=== PATIENT | male | born 1945 | race Caucasian/White ===

== ENCOUNTER → 2017-12-01 11:28 | Outpatient (CLI) | payer MEDICARE, SELFPAY ==
[2017-12-01 14:26] LABS: Absolute Lymphocyte Count 1.81 X10^3/ul (0.83-4.51); Basophil# 0.01 X10^3/uL; Basophil% 0.2 % (0-1); Eosinophil# 0.07 X10^3/uL; Eosinophils% 1.3 % (0-5); Hematocrit 42.6 % (40-54); Hemoglobin 14.1 g/dl (13.0-16.5); Lymphocyte # 1.81 X10^3/ul (4.0); Mean Corp Hgb Conc 33.1 g/gl (32-36); Mean Corpuscular Hgb 30.8 pg (27.0-32.0); Monocyte# 0.55 X10^3/uL; Neutrophil # 3.03 X10^3/uL (2.7-7.7); Neutrophil % 55.3 % (47-70); Platelet Count 221 K/mm3 (150-450); RBC Distribution Width CV 12.8 % (11.6-14.6); RBC Distribution Width SD 43.2 fl (35.1-43.9); Red Blood Count 4.58 M/mm3 (4.6-6.2); White Blood Count 5.5 K/mm3 (4.4-11.0)
[2017-12-01 14:32] LABS: POSITIVE COUNT NO; POSITIVE DIFFERENTIAL NO; POSITIVE MORPHOLOGY NO
[2017-12-01 14:38] LABS: Anion Gap 5 (5-15); BUN 17 mg/dL (7-18); BUN/Creat Ratio 16.8 RATIO (10-20); Chloride 102 mmol/L (98-107); Creatinine, Serum 1.01 mg/dL (0.70-1.30); EST Glomerular Filtration Rate 77 mL/min (>60); Est Glom Filt Rate - Afr Amer 94 mL/min (>60); Glucose 83 mg/dL (74-106); Sodium Level 139 mmol/L (136-145)
== END ==
PROVIDERS: Family Provider Family Medicine; PCP Family Medicine; Visit Provider Internal Medicine
DX: R53.81 Other malaise (principal); R53.83 Other fatigue
CPT/HCPCS: 36415; 80048; 85025

== ENCOUNTER 2018-10-26 13:00 | Outpatient (RCR) | payer MEDICARE, SELFPAY ==
[2018-10-23 10:38] VITALS: BMI 22.8
--- NOTE | 2018-10-26 13:40 | HP.PTEVAL ---
Patient's Visit Information RADHA MORTON is a 73 year old M referred to Physical Therapy by Carlos Dexter MD with a diagnosis of vertigo. Date of Evaluation: 10/26/18 Physical Therapist: Erick Escobedo, DPT, OCS, CSCS - Visit Plan Plan: No dizzyness found to treat today. Pt treated sefl two days ago with Hermes and has been good since. - Subjective Findings: Has vertigo for 10 years on and off. Decongestant took care of it at that time. 5 yrs ago had it for a couple days and disappeared. This time it has been for about a month on and off. Played basketball this morning without a problem but moght move a certain way at desk and get it. Worse last 3-4 months. No obvious trigger except turning head really fast. Room spins an he goes to the right. It lasts short duration couple minutes to half hour. Monday it was all morning but not spinning, just lightheaded. Tried Hermes maneuver Monday adn has been pretty good since Monday. Not unusual to go a week without anything. Activities are pretty normal except when he is actively dizzy he has to be careful. 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 - Objective Walks and trasnfers well adn I, jogs up steps without need of rail. LB ROM excellent adn without pain. C/S AROM without pain and more mobile than most 73 yo. - B hallpike wesley. - rolltest. Oculomotor: no nystagmus with gaze or head shake. - head thrust. - problem with convergence. - skew eye deviation. Pursuit/saccades/ VOR normal and asymptomatic. MSQ postiions are all negative today. - Balance Scores Functional Gait Assessment Score: 30 % Disability: 0 CATSIB Score (Max score 120 seconds): 120 - Rehabilitation Potential Physical Therapy Diagnosis: vertigo - Anticipated Interventions Thank you for the opportunity to evaluate your patient. For Medicare and Medicare HMO plans, please review the plan of care and approve it. It will need to be FAXED BACK to us at [phone] for Medicare purposes. For Medicare only, by signing this I certify the plan of care. Please let me know if there are questions or concerns regarding this plan of care. Physician Signature: Date:
== END 2018-10-26 19:00 | disposition home or self-care (01) ==
LOC: PT 13:00
PROVIDERS: Family Provider Family Medicine; PCP Family Medicine; Referring Provider Internal Medicine; Visit Provider Internal Medicine
DX: R42 Dizziness and giddiness (principal)
CPT/HCPCS: 97162

== ENCOUNTER → 2022-12-21 | Outpatient (CLI) | payer BC, SELFPAY ==
[2022-12-21 10:21] LABS: Bacteria 0 SEEN /hpf (None Seen); Mucous, Urine 0 SEEN /hpf (<or=2+); Squamous Epithelial Cells - UA 0 SEEN /hpf (0-5); White Blood Cells 0 SEEN /hpf (0-5)
[2022-12-21 10:34] LABS: Color, Urine Yellow (Yellow); Glucose, Dipstick Normal (Normal); Ketone-Dipstick 5 mg/dl (Negative); Leukocyte Esterase-Dipstick Negative /ul (Negative); Nitrite-Dipstick Negative (Negative); Occult Blood-Urine 250 /ul (Negative); Protein-Dipstick 100 mg/dl (Negative); Specific Gravity, Urine 1.015 (1.002-1.030); Urine Bilirubin Dipstick Negative (Negative); Urine Clarity Sl. Cloudy (Clear); Urine Urobilinogen Normal (Normal); Urine pH 6.5 (5.0 - 8.0)
[2022-12-21 11:19] LABS: Red Blood Cells-Urine > 100 SEEN /hpf (0-5)
== END | disposition home or self-care (01) ==
LOC: LABSPEC 10:12
PROVIDERS: PCP Family Medicine; Referring Provider Physician Assistant; Visit Provider Physician Assistant
DX: R32 Unspecified urinary incontinence (principal)
CPT/HCPCS: 81001; 87086; 87088

== ENCOUNTER → 2023-01-10 | Outpatient (CLI) | payer MEDICARE, SELFPAY ==
[2023-01-10 15:20] LABS: Absolute Neutrophil Count 3.6 X10^3/uL (2.0-7.7); Basophil# 0.01 X10^3/uL; Basophil% 0.2 % (0-1); Eosinophil# 0.09 X10^3/uL; Eosinophils% 1.4 % (0-5); Hematocrit 43.8 % (40-54); Hemoglobin 14.5 g/dL (13.0-16.5); Lymphocyte % 34.1 % (19-41); Mean Corp Hgb Conc 33.1 g/dL (32-36); Mean Corpuscular Hgb 31.7 pg (27.0-32.0); Mean Corpuscular Volume 95.6 fL (80-94); Mean Platelet Vol. 9.8 fl (6.2-12.0); Monocyte# 0.51 X10^3/uL; Monocyte% 7.9 % (0-10); NRBC Flagged by Analyzer 0 % (0-5); Neutrophil # 3.63 X10^3/uL (2.7-7.7); Neutrophil % 56.1 % (47-70); Platelet Count 241 K/mm3 (150-450); RBC Distribution Width CV 12.4 % (11.6-14.6); RBC Distribution Width SD 43.8 fl (35.1-43.9); Red Blood Count 4.58 M/mm3 (4.6-6.2); White Blood Count 6.5 K/mm3 (4.4-11.0)
[2023-01-10 15:52] LABS: AST(SGOT) 23 U/L (15-37); Alanine Aminotransfer ALT/SGPT 31 U/L (16-61); Albumin, Serum 3.5 g/dL (3.2-5.0); Alkaline Phosphatase 91 U/L (45-117); Anion Gap 2 (5-15); BUN 28 mg/dL (7-18); BUN/Creat Ratio 26.2 RATIO (10-20); Calcium,Total 9.1 mg/dL (8.5-10.1); Chloride 106 mmol/L (98-107); Creatinine, Serum 1.07 mg/dL (0.70-1.30); EST Glomerular Filtration Rate 71 mL/min (>60); Est Glom Filt Rate - Afr Amer 86 mL/min (>60); Globulin 3.4 g/dL (2.2-4.2); Glucose 98 mg/dL (74-106); PSA,Total - Annual Screen 4.04 ng/mL (0.00-4.00); Protein, Total 6.9 g/dL (6.4-8.2); Sodium Level 139 mmol/L (136-145)
[2023-01-10 15:56] LABS: Bacteria 0 SEEN /hpf (None Seen); Mucous, Urine 0 SEEN /hpf (<or=2+); Red Blood Cells-Urine 0 SEEN /hpf (0-5); Squamous Epithelial Cells - UA 0 SEEN /hpf (0-5); White Blood Cells 0 SEEN /hpf (0-5)
[2023-01-10 16:42] LABS: Color, Urine Yellow (Yellow); Glucose, Dipstick Normal (Normal); Ketone-Dipstick Negative (Negative); Leukocyte Esterase-Dipstick Negative /ul (Negative); Nitrite-Dipstick Negative (Negative); Occult Blood-Urine Negative /ul (Negative); Protein-Dipstick Negative (Negative); Specific Gravity, Urine 1.015 (1.002-1.030); Urine Bilirubin Dipstick Negative (Negative); Urine Clarity Clear (Clear); Urine Urobilinogen Normal (Normal)
[2023-01-10 16:53] LABS: Amorphous Sediment 1+
[2023-01-10 17:55] LABS: Cholesterol 178 mg/dL (200); High Density Lipoprotein 57 mg/dL; Triglycerides 65 mg/dL; Very Low Density Lipoprotein 13 mg/dL (5-40)
== END | disposition home or self-care (01) ==
PROVIDERS: PCP Family Medicine; Referring Provider Nurse Practitioner Family; Visit Provider Nurse Practitioner Family
DX: R31.9 Hematuria, unspecified (principal); R30.0 Dysuria; Z12.5 Encounter for screening for malignant neoplasm of prostate; Z13.6 Encounter for screening for cardiovascular disorders
CPT/HCPCS: 36415; 80053; 80061; 81001; 84153; 85025; 87086; G0103

== ENCOUNTER 2024-08-15 07:18 | Day surgery (SDC) | payer MEDICARE, SELFPAY ==
[2024-08-15] VITALS (8 sets, daily range): BP systolic 84–149; BP diastolic 46–96; PULSE 49–58; RESP 16; TEMP 36.1–36.2; O2SAT 94–99; BMI 22.7
--- NOTE | 2024-08-15 07:57 | HP.PCM_ITS ---
History and Physical Date of Admission: 08/15/24 Intake Vital Signs 06/12/2414:49 06/13/2408:21 07/05/2413:16 Height 5 ft 10 in 5 ft 10 in 5 ft 10 in Weight: 156 lb 159 lb BMI 22.4 22.8 BP 110/64 122/71 H Blood Pressure Location Lt brachial Rt brachial Position Sitting Sitting Respiration 16 17 Pulse 60 57 L Pulse Source Monitor Monitor Temp 100 F H 97.1 F L Temp Source Temporal Temporal Pulse Oximetry (%) 96 97 Oxygen Delivery Method room air room air Intake Visit Reasons: Esophagogastroduodenoscopy Chief Complaint: egd Is patient in pain?: No Allergies No Known Allergies Allergy (Unverified 07/05/24 13:17) Medications ?Medication ?Instructions ?Recorded ?Confirmed ?Type antiarthritic combination no.2 900 mg PO 07/05/24 07/05/24 History mg tablet (glucosamine-chondroitin) coconut oil 1,000 mg capsule mg PO 07/05/24 07/05/24 History yzmbxqnu-epa-ypxcj acid 0.4 1 tab PO QDAY 07/05/24 07/05/24 History mg-lycopene 300 mcg-lutein 250 mcg tablet (Complete Multivitamin Adult 50 Plus) omega-3 fatty acids 1,000 mg 1,000 mg PO QDAY 07/05/24 07/05/24 History capsule Have you fallen in the past year?: No PFSH Medical History Screening PSA (prostate specific antigen) Dysuria Hematuria Hearing loss Surgical History History of hernia repair Social History Smoking Status: Never smoker alcohol intake: never substance use type: does not use what type of physical activity do you participate in: running, aerobics and weight training frequency: daily HPI HPI HPI: Patient is a 79-year-old male here for dysphagia. He says that for the last 4 to 5 years he has been having difficulty swallowing his pills as well as some meat. He does have occasional acid reflux and does not take anything for it. ROS General General: No weight change, appetite, fatigue, colon cancer, breast cancer or weakness HEENT HEENT: Yes difficulty swallowing and eye surgery; No eye injury, swollen glands or hoarseness Endo Endocrine: No thyroid disease, diabetes mellitus, thyroid cancer, Hair loss, heat intolerance or cold intolerance Skin Skin: No rash or changing moles Musc Musculoskeletal: No back problems, arthritis, rheumatoid arthritis, gout or joint pain Cardio Cardiovascular: No murmur, pacemaker, heart disease, atrial fibrillation, high blood pressure, heart attack, heart stent, palpitations, shortness of breat with exertion or chest pain Psych Psychiatric: No depression, anxiety or hearing voices Resp Respiratory: No shortness of breath, No sleep apnea, No cough, No COPD, No asthma, No emphysema and No wheezing Gastro Gastrointestinal: No abdominal pain, No nausea or vomiting, No diarrhea, No constipation, No blood in stool, No acid reflux, No hemorrhoids, No ulcers, No gallbladder problem and No black,tarry stools Adam Hematologic: No blood thinners, No blood disorders, No bleeding, No anemia and No blood clots Neuro Neurologic: No system reviewed and no additional complaints, except as documented, No as per HPI, No abnormal gait, No abnormal hearing, No abnormal movements, No abnormal speech, No behavioral changes, No burning sensations, No confusion, No convulsions, No disequilibrium, No dizziness, No localized weakness, No frequent falls, No headache(s), No lack of coordination, No loss of vision, No memory loss, No numbness, No other visual disturbances, No radicular pain, No restless legs, No sensory deficit, No syncope, No tingling, No tremor(s), No weakness and No other Exam Const General: cooperative Orientation: alert and oriented x3 [facility] Head: normal to inspection Neck Neck: normal visual inspection and full ROM Chest Chest palpation & inspection: normal inspection of the chest Resp Effort & Inspection: normal respiratory effort Auscultation: clear to auscultation bilaterally Cardio Rate: regular rate Rhythm: regular rhythm GI Inspection: non-distended Palpation: soft and nontender Skin General: no rashes or lesions noted Neuro General: patient alert and patient oriented x3 Extrem General: full ROM Psych Appearance: grossly normal Mental Status: mental status grossly normal Assessment and Plan Assessment and Plan (1) Difficulty swallowing pills: Status: Acute Plan: Patient has been having dysphagia I discussed EGD with possible dilation. I also discussed the increased risk of bleeding with dilation. I explained endoscopy in detail to the patient. I explained the risks including but not limited to stroke or heart attack with anesthesia, perforation of the GI tract, bleeding, infection. I explained that any of these could necessitate further emergency surgery. The patient understands and all questions were answered sufficiently. The patient wishes to proceed with procedure. Thad Lockwood MD Pager: [facility] [address] [place] [address], [address] [place] [address] Office: I have examined the patient and the H&P has been reviewed. There are no clinical changes since date of exam.
--- NOTE | 2024-08-15 08:00 | PCM.PRE.AN2 ---
ASA Classification* ASA Classification ASA Classification: 2 Assessment & Plan Anesthesia* Anesthesia Assessment Anesthesia Assessment: Discussed sedation and/or anesthesia options, risks, benefits, and alternatives with patient/parents/legal guardian/POA. Questions invited. The patient/parents/legal guardian/POA seems to understand and agrees to proceed with anesthesia plan. Reviewed the physical assessment, medical history, allergy history and patient home medications list prior to surgery/procedure/anesthetic and documented any changes. Performed airway and anesthesia risk assessments. Anesthesia Type Anesthesia Type: MAC Anesthesia Focused Assessment* Temperature: 97.1 F Pulse Rate: 52 Blood Pressure: 149/81 Respiratory Rate: 16 Pulse Ox: 99 Airway Assessment Mouth opens: >3 cm Mallampati Score: II Focused Labs Anesthesia Preop lab: CBC WBC 6.5 K/mm3 (4.4-11.0) 01/10/23 14:22 RBC 4.58 M/mm3 (4.6-6.2) L 01/10/23 14:22 Hgb 14.5 g/dL (13.0-16.5) 01/10/23 14:22 Hct 43.8 % (40-54) 01/10/23 14:22 Plt Count 241 K/mm3 (150-450) 01/10/23 14:22 CHEMISTRY Potassium 4.0 mmol/L (3.5-5.1) 01/10/23 14:22 Sodium 139 mmol/L (136-145) 01/10/23 14:22 BUN 28 mg/dL (7-18) H 01/10/23 14:22 Creatinine 1.07 mg/dL (0.70-1.30) 01/10/23 14:22 Glucose 98 mg/dL (74-106) 01/10/23 14:22 COAG Pre-Assessment Diagnosis/Proposed Procedure Planned Operative Procedure(s): EGD POSS DILATION Anesthesia History Anesthesia History - preload supervisor: Anesthesia History - preload supervisor Hx Hospitalization No 08/12/24 15:38 Any Problems With Anesthesia No 08/12/24 15:38 Cholinesterase deficiency No 08/12/24 15:38 You/Your Family Experience No 08/12/24 15:38 fever (hyperthermia) with Relationship Recent Exposure to Contagious No 08/15/24 07:39 Disease Does patient have nerve No 08/12/24 15:38 stimulator Patient instructed to have device shut off --Does patient have Pacemaker No 08/15/24 07:39 or ICD? When Was Last Pacemaker Check QUESTION #4 FULL TEXT: You/Your Family Experience fever (hyperthermia) with Anesthesia Last Oral Intake Last Oral intake: Last Oral Intake NPO since 20:00 08/15/24 07:39 Meds taken in AM with sips of No 08/15/24 07:39 water? Meds patient instructed to take am of surgery PONV PONV - preload supervisor: PONV - preload supervisor Female No 08/12/24 15:38 HX of Motion Sickness No 08/12/24 15:38 HX of N/V After Surgery No 08/12/24 15:38 Non-Smoker Yes 08/12/24 15:38 Duration of Surgery greater No 08/12/24 15:38 than 60 minutes Number of Risk Factors 1 08/12/24 15:38 PONV Score Low Risk 08/12/24 15:38 Height & Weight Height & Weight: Anesthesia: Height & Weight Height 5 ft 10 in 08/15/24 07:39 Weight: 72 kg 08/15/24 07:39 Body Mass Index (BMI) 22.7 08/15/24 07:39 Respiratory Assessment Respiratory Assessment - preload supervisor: Respiratory Tract Infection Hx - preload supervisor Hx Respiratory Tract Infection No 08/12/24 15:38 STOP Sleep Apnea STOP Sleep Apnea - preload supervisor: STOP Sleep Apnea - preload supervisor Hx Hypertension No 08/12/24 15:38 Hx Sleep Apnea No 08/12/24 15:38 CPAP BIPAP Do you snore loudly (louder No 08/12/24 15:38 than talking or can be heard Do you often feel tired/ No 08/12/24 15:38 fatigued/ sleepy during daytime? Has anyone observed you stop No 08/12/24 15:38 breathing during sleep? STOP Results Negative 08/12/24 15:38 QUESTION #5 FULL TEXT : Do you snore loudly (louder than talking or can be heard through closed doors)? 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 Specify any problems Hx of Preganancy in last 3 N/A 08/12/24 15:38 Months Nurse Filling Out Transfusion DSCHRIBER 08/12/24 15:38 & Questions: Date: 08/12/24 08/12/24 15:38 Time: 15:40 08/12/24 15:38 Patient unable to answer at this time (ie. confused, unrespo /Reproduction History /Reproductive History - preload supervisor: /Reproductive Hx- preload supervisor Hx Now No 08/12/24 15:38 Gestational Age (in weeks): EDC: Hx Hx Para Hx Section SAB No 08/12/24 15:38 PFSH Medical History Loss of hearing Wears glasses Prostate disease Difficulty swallowing Difficulty chewing Heartburn Non-smoker History of stress test Screening PSA (prostate specific antigen) Dysuria Hematuria Home Medications ?Medication ?Instructions ?Recorded ?Last Taken ?Type antiarthritic combination no.2 900 900 mg PO DAILY 07/05/24 08/14/24 History mg tablet (glucosamine-chondroitin) coconut oil 1,000 mg capsule 1,000 mg PO DAILY 07/05/24 08/14/24 History yiwzjvng-exl-ygcvv acid 0.4 1 tab PO QDAY 07/05/24 08/14/24 History mg-lycopene 300 mcg-lutein 250 mcg tablet (Complete Multivitamin Adult 50 Plus) omega-3 fatty acids 1,000 mg 1,000 mg PO QDAY 07/05/24 08/14/24 History capsule Allergy/AdvReac Type Severity Reaction Status Date / Time No Known Allergies Allergy Verified 08/15/24 07:35 Surgical History Hx of right cataract extraction Hx of left cataract extraction History of hernia repair Social History Smoking Status: Never smoker alcohol intake: never substance use type: does not use what type of physical activity do you participate in: running, aerobics and weight training frequency: daily Review of Systems (Anesthesia) ROS Narrative System reviewed and no additional complaints, except as documented.
--- NOTE | 2024-08-15 08:48 | OP.EGD_ITS ---
Patient Name: Robb Mora Procedure Date: 08/15/2024 8:35 AM Date of : 1945 Age: 79 Procedure: Upper GI endoscopy Indications: Dysphagia Providers: Thad Lockwood MD Referring MD: Car Weston Medicines: Propofol per Anesthesia Patient Profile: This is a 79 year old male. Refer to note in patient chart for documentation of history and physical. Complications: No immediate complications. Estimated blood loss: Minimal. Procedure: Pre-Anesthesia Assessment: - Prior to the procedure, a History and Physical was performed, and patient medications and allergies were reviewed. The patient's tolerance of previous anesthesia was also reviewed. The risks and benefits of the procedure and the sedation options and risks were discussed with the patient. All questions were answered, and informed consent was obtained. Prior Anticoagulants: The patient has taken no anticoagulant or antiplatelet agents. After reviewing the risks and benefits, the patient was deemed in satisfactory condition to undergo the procedure. After obtaining informed consent, the endoscope was passed under direct vision. Throughout the procedure, the patient's blood pressure, pulse, and oxygen saturations were monitored continuously. The Endoscope was introduced through the mouth, and advanced to the fourth part of duodenum. The upper GI endoscopy was accomplished without difficulty. The patient tolerated the procedure well. Scope In: 8:39:08 AM Scope Out: 8:43:44 AM Total Procedure Duration Time 0 hours 4 minutes 36 seconds Findings: One benign-appearing, intrinsic moderate stenosis was found at the gastroesophageal junction. This stenosis measured less than one cm (in length). The stenosis was traversed. A TTS dilator was passed through the scope. Dilation with a 12-13.5-15 mm balloon dilator was performed to 15 mm. The dilation site was examined following endoscope reinsertion and showed moderate improvement in luminal narrowing. The stomach was normal. The examined duodenum was normal. A medium-sized hiatal hernia was present. Impression: - Benign-appearing esophageal stenosis. Dilated. - Normal stomach. - Normal examined duodenum. - Medium-sized hiatal hernia. - No specimens collected. Recommendation: - Discharge patient to home. - Soft diet for 2 days. - Use Prilosec (omeprazole) 20 mg PO daily for 4 weeks. - Continue present medications. Procedure Code(s): --- Professional --- 70704, Esophagogastroduodenoscopy, flexible, transoral; with transendoscopic balloon dilation of esophagus (less than 30 mm diameter) Diagnosis Code(s): --- Professional --- K22.2, Esophageal obstruction K44.9, Diaphragmatic hernia without obstruction or gangrene R13.10, Dysphagia, unspecified CPT copyright 2021 [employer]. All rights reserved. The codes documented in this report are preliminary and upon industrial gas servicer review may be revised to meet current compliance requirements. Thad Lockwood MD 08/15/2024 8:48:24 AM This report has been signed electronically. Number of Addenda: 0 Note Initiated On: 08/15/2024 8:35 AM
--- NOTE | 2024-08-15 08:49 | OP.CCLET_ITS ---
08/15/2024 Car Weston Re : Upper GI endoscopy procedure for Robb Mora Dear Dr. Weston This procedure was performed on August. My impressions and recommendations are as follows: Impressions : - Benign-appearing esophageal stenosis. Dilated. - Normal stomach. - Normal examined duodenum. - Medium-sized hiatal hernia. - No specimens collected. Recommendations : - Discharge patient to home. - Soft diet for 2 days. - Use Prilosec (omeprazole) 20 mg PO daily for 4 weeks. - Continue present medications. My findings are described in the full procedure note, which is enclosed. If I can be of further assistance, please feel free to contact me at Doctor phone number(s): , Work: . Sincerely, Thad Lockwood MD 08/15/2024 8:48:24 AM This report has been signed electronically.
--- NOTE | 2024-08-15 08:51 | PCM.POST.ANE ---
Anesthesia: Postop Eval I Current Vital Signs Temperature: 97 F Pulse Rate: 52 Blood Pressure: 84/46 Respiratory Rate: 16 Pulse Ox: 96 Oxygen Delivery Method: Room Air Assessment Airway patent: Yes Spontaneous unlabored respirations: Yes Mental status: Asleep nausea: No Vomiting: No Anesthesia Complication: No Fluid Hydration Crystalloid volume administer (ml): 30 Total IV fluid infused: 30 Progress Note Anesthesia document: Postop Eval 1 completed: Yes
--- NOTE | 2024-08-15 09:01 | PCM.POSTANE2 ---
Anesthesia Postop Eval I Sum Postop Eval Completion status Anesthesia document: Postop Eval 1 completed: Yes Anesthesia Postop Eval I Summary Anesthesia Postop Eval I Summary: Anesthesia Postop Eval I: Assessment Summary Airway patent Yes 08/15/24 08:52 [email or web address] Spontaneous unlabored Yes 08/15/24 08:52 [email or web address] respirations Mental status Asleep 08/15/24 08:52 [email or web address] nausea No 08/15/24 08:52 [email or web address] Vomiting No 08/15/24 08:52 [email or web address] Anesthesia Postop Eval I: Fluid Summary Crystalloid volume administer 30 08/15/24 08:52 [email or web address] (ml) Colloids volume administered ( ml) Blood Product volume administered (ml) Total IV fluid infused 30 08/15/24 08:52 [email or web address] Anesthesia Postop Eval I: Summary Notes Anesthesia Complication No 08/15/24 08:52 [email or web address] Anesthesia Complication Comment: Post-operative progress note Anesthesia: Postop Eval II Evaluation Mental status: Awake Pain Level: 0 nausea: No Vomiting: No
== END 2024-08-15 09:27 | disposition home or self-care (01) ==
LOC: EN 07:20 → AC 07:24
PROVIDERS: PCP Family Medicine; Referring Provider Family Medicine; Visit Provider Surgery
PROC: 0DJ08ZZ Inspection of Upper Intestinal Tract, Via Natural or Artificial Opening Endoscopic (ICD-10-PCS; CPT 43235; principal; 2024-08-15 08:25)
DX: K22.2 Esophageal obstruction (principal); K44.9 Diaphragmatic hernia without obstruction or gangrene; K21.9 Gastro-esophageal reflux disease without esophagitis
CPT/HCPCS: 43249; A4216; J2405

== ENCOUNTER 2024-10-11 06:50 | Day surgery (SDC) | payer MEDICARE, SELFPAY ==
[2024-10-11] VITALS (9 sets, daily range): BP systolic 83–137; BP diastolic 67–76; PULSE 46–63; RESP 16; TEMP 36.2–36.5; O2SAT 94–97; BMI 23.1
--- NOTE | 2024-10-11 07:45 | PRE.ANES_ITS ---
ASA Classification* ASA Classification ASA Classification: 2 Assessment & Plan Anesthesia* Anesthesia Assessment Anesthesia Assessment: Discussed sedation and/or anesthesia options, risks, benefits, and alternatives with patient/parents/legal guardian/POA. Questions invited. The patient/parents/legal guardian/POA seems to understand and agrees to proceed with anesthesia plan. Reviewed the physical assessment, medical history, allergy history and patient home medications list prior to surgery/procedure/anesthetic and documented any changes. Performed airway and anesthesia risk assessments. Anesthesia Type Anesthesia Type: MAC History Source History Obtained from:: Patient and Chart Anesthesia Focused Assessment* Temperature: 97.7 F Pulse Rate: 51 Blood Pressure: 137/76 Respiratory Rate: 16 Pulse Ox: 96 Oxygen Delivery Method: Room Air Airway Assessment Mouth opens: 2 cm Mallampati Score: IV Teeth Condition: Caps/Crowns (Patient has several caps. They are all tight.) and Missing (Patient has 1 missing tooth. Rest of the teeth are tight.) Neck Range of motion (ROM): Full ROM Focused Labs Anesthesia Preop lab: CBC WBC 6.5 K/mm3 (4.4-11.0) 01/10/23 14:22 RBC 4.58 M/mm3 (4.6-6.2) L 01/10/23 14:22 Hgb 14.5 g/dL (13.0-16.5) 01/10/23 14:22 Hct 43.8 % (40-54) 01/10/23 14:22 Plt Count 241 K/mm3 (150-450) 01/10/23 14:22 CHEMISTRY Potassium 4.0 mmol/L (3.5-5.1) 01/10/23 14:22 Sodium 139 mmol/L (136-145) 01/10/23 14:22 BUN 28 mg/dL (7-18) H 01/10/23 14:22 Creatinine 1.07 mg/dL (0.70-1.30) 01/10/23 14:22 Glucose 98 mg/dL (74-106) 01/10/23 14:22 COAG Pre-Assessment Diagnosis/Proposed Procedure Planned Operative Procedure(s): EGD w/dilation Anesthesia History 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 When Was Last Pacemaker Check QUESTION #4 FULL TEXT: You/Your Family Experience fever (hyperthermia) with Anesthesia Last Oral Intake Last Oral intake: Last Oral Intake NPO since 00:00 10/11/24 07:04 Meds taken in AM with sips of No 10/11/24 07:04 water? 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 driver Female No 10/09/24 09:36 HX of Motion Sickness No 10/09/24 09:36 HX of N/V After Surgery No 10/09/24 09:36 Non-Smoker Yes 10/09/24 09:36 Duration of Surgery greater No 10/09/24 09:36 than 60 minutes Number of Risk Factors 1 10/09/24 09:36 PONV Score Low Risk 10/09/24 09:36 Height & Weight Height & Weight: Anesthesia: Height & Weight Height 5 ft 10 in 10/11/24 07:04 Weight: 73 kg 10/11/24 07:04 Body Mass Index (BMI) 23.1 10/11/24 07:04 Respiratory Assessment Respiratory Assessment - refrigerated company driver: Respiratory Tract Infection Hx - refrigerated company driver Hx Respiratory Tract Infection No 10/09/24 09:36 STOP Sleep Apnea STOP Sleep Apnea - refrigerated company driver: STOP Sleep Apnea - refrigerated company driver Hx Hypertension No 10/09/24 09:36 Hx Sleep Apnea No 10/09/24 09:36 CPAP BIPAP Do you snore loudly (louder No 10/09/24 09:36 than talking or can be heard Do you often feel tired/ No 10/09/24 09:36 fatigued/ sleepy during daytime? Has anyone observed you stop No 10/09/24 09:36 breathing during sleep? STOP Results Negative 10/09/24 09:36 QUESTION #5 FULL TEXT : Do you snore loudly (louder than talking or can be heard through closed doors)? 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 Specify any problems Hx of Preganancy in last 3 N/A 10/09/24 09:36 Months Nurse Filling Out Transfusion VCHRISTIN 10/09/24 09:36 & Questions: Date: 10/09/24 10/09/24 09:36 Time: 09:37 10/09/24 09:36 Patient unable to answer at this time (ie. confused, unrespo /Reproduction History /Reproductive History - refrigerated company driver: /Reproductive Hx- refrigerated company driver Hx Now No 10/09/24 09:36 Gestational Age (in weeks): EDC: Hx Hx Para Hx Section SAB No 10/09/24 09:36 [facility] History Osteoarthritis of left knee Left knee pain Loss of hearing Wears glasses Prostate disease Difficulty swallowing Difficulty chewing Heartburn Non-smoker History of stress test Screening PSA (prostate specific antigen) Dysuria Hematuria Home Medications ?Medication ?Instructions ?Recorded ?Last Taken ?Type antiarthritic combination no.2 900 900 mg PO DAILY 07/05/24 08/14/24 History mg tablet (glucosamine-chondroitin) [id number]-vxu-[id number] acid 0.4 1 tab PO QDAY 07/05/24 08/14/24 History mg-lycopene 300 mcg-lutein 250 mcg tablet (Complete Multivitamin Adult 50 Plus) omega-3 fatty acids 1,000 mg 1,000 mg PO QDAY 07/05/24 08/14/24 History capsule omeprazole 20 mg tablet,delayed 20 mg PO DAILY #60 tabs 08/15/24 Unknown Rx release coenzyme Q10 100 mg capsule 100 mg PO QDAY 09/19/24 Unknown History Allergy/AdvReac Type Severity Reaction Status Date / Time No Known Allergies Allergy Verified 10/11/24 07:00 Surgical History H/O endoscopy Hx of right cataract extraction Hx of left cataract extraction History of hernia repair Social History Smoking Status: Never smoker alcohol intake: never substance use type: does not use what type of physical activity do you participate in: running, aerobics and weight training frequency: daily Review of Systems (Anesthesia) ROS Narrative System reviewed and no additional complaints, except as documented.
--- NOTE | 2024-10-11 08:09 | H&P.OPEN ---
HPI - General HPI Narrative RADHA MORTON, is a 79 M who presents for dysphagia. The patient had esophageal dilation in August. The patient was told to follow-up if he started having dysphagia again. The patient reports that pills are getting stuck again. [facility], [facility] Medical History Osteoarthritis of left knee Left knee pain Loss of hearing Wears glasses Prostate disease Difficulty swallowing Difficulty chewing Heartburn Non-smoker History of stress test Screening PSA (prostate specific antigen) Dysuria Hematuria Home Medications ?Medication ?Instructions ?Recorded ?Last Taken ?Type antiarthritic combination no.2 900 900 mg PO DAILY 07/05/24 08/14/24 History mg tablet (glucosamine-chondroitin) sfkfltjq-obz-xppfo acid 0.4 1 tab PO QDAY 07/05/24 08/14/24 History mg-lycopene 300 mcg-lutein 250 mcg tablet (Complete Multivitamin Adult 50 Plus) omega-3 fatty acids 1,000 mg 1,000 mg PO QDAY 07/05/24 08/14/24 History capsule omeprazole 20 mg tablet,delayed 20 mg PO DAILY #60 tabs 08/15/24 Unknown Rx release coenzyme Q10 100 mg capsule 100 mg PO QDAY 09/19/24 Unknown History Allergy/AdvReac Type Severity Reaction Status Date / Time No Known Allergies Allergy Verified 10/11/24 07:00 Surgical History H/O endoscopy Hx of right cataract extraction Hx of left cataract extraction History of hernia repair Social History Smoking Status: Never smoker alcohol intake: never substance use type: does not use what type of physical activity do you participate in: running, aerobics and weight training frequency: daily Past Medical/Surgical History Planned Operation Planned Operative Procedure(s): EGD w/dilation Previous Hospitalizations/Surgeries HX Hospitalizations: No Any Problems With Anesthesia: No You/Your Family Experience Fever (Hyperthermia) With Anes: No Cholinesterase deficiency: No Cardiovascular Hx Hypertension: No Respiratory Hx Sleep Apnea: No Hx Respiratory Tract Infection/Cold (presently): No Do You Snore Loudly (louder than talking or can be heard): No Do You Often Feel Tired/ Fatigued/ Sleepy Dring Daytime?: No Has Anyone Observed You Stop Breathing During Sleep?: No Result (for STOP score): Negative Smoking Status: Never smoker Neurological Does patient have nerve stimulator: No Reproduction : No Miscellaneous Recent Exposure to Contagious Disease: No Allergies No Known Allergies Allergy (Verified 10/11/24 07:00) Discharge Is Pt Admitted From a Correction, or a Residential: No After D/C, Where Do you Plan to Go: Return Home Vital Signs Vital Signs Vital Signs: 10/11/24 07:04 10/11/24 07:04 10/11/24 07:50 Temperature 97.7 F L 97.7 F L Temperature Source Temporal Pulse Rate 51 L 51 L Respiratory Rate 16 16 Respiratory Pattern Normal Blood Pressure 137/76 H 137/76 H Blood Pressure Mean 96 Blood Pressure Source Monitor Blood Pressure Position Semi-Fowlers Blood Pressure Location Left Arm Pulse Ox 96 96 Oxygen Delivery Method Room Air Room Air Weight Weight: 160 lb 14.999 oz Body Mass Index (BMI) 23.1 Physical Exam Const alert and oriented x3 HEENT normocephalic Eyes PERRL Resp normal respiratory effort and normal air movement Cardio regular rate and regular rhythm GI soft to palpation, non-tender and non-distended Extremity normal to inspection Assessment & Plan Assessment/Plan (1) Difficulty swallowing pills: PLAN: Patient is having recurrent dysphagia. I discussed EGD with dilation with him. I was able to dilate him to 15 mm last time. I explained endoscopy in detail to the patient. I explained the risks including but not limited to stroke or heart attack with anesthesia, perforation of the GI tract, bleeding, infection. I explained that any of these could necessitate further emergency surgery. The patient understands and all questions were answered sufficiently. The patient wishes to proceed with procedure. I discussed increased risk of bleeding and perforation with dilation. Thad Lockwood MD Pager: [facility] [address] [place] [address] [address] [place] [address] Office: Surgery Risks - Colonoscopy Risks Include but are not Limited To: Risks include but are not limited to: Bleeding, perforation requiring further surgery, inability to complete colonoscopy requiring barium enema.
--- NOTE | 2024-10-11 08:29 | OP.CCLET_ITS ---
10/11/2024 Car Weston Re : Upper GI endoscopy procedure for Robb Mora Dear Dr. Weston This procedure was performed on Friday, October 11, 2024. My impressions and recommendations are as follows: Impressions : - Benign-appearing esophageal stenosis. Dilated. - Normal stomach. - Normal examined duodenum. - No specimens collected. Recommendations : - Discharge patient to home. - Mechanical soft diet for 2 days. - Continue present medications. My findings are described in the full procedure note, which is enclosed. If I can be of further assistance, please feel free to contact me at Doctor phone number(s): , Work: . Sincerely, Thad Lockwood MD 10/11/2024 8:28:46 AM This report has been signed electronically.
--- NOTE | 2024-10-11 08:29 | OP.EGD_ITS ---
Patient Name: Robb Mora Procedure Date: 10/11/2024 8:13 AM Date of : 1945 Age: 79 Procedure: Upper GI endoscopy Indications: Dysphagia Providers: Thad Lockwood MD Referring MD: Car Weston Medicines: Propofol per Anesthesia Patient Profile: This is a 79 year old male. Refer to note in patient chart for documentation of history and physical. Complications: No immediate complications. Procedure: Pre-Anesthesia Assessment: - Prior to the procedure, a History and Physical was performed, and patient medications and allergies were reviewed. The patient's tolerance of previous anesthesia was also reviewed. The risks and benefits of the procedure and the sedation options and risks were discussed with the patient. All questions were answered, and informed consent was obtained. Prior Anticoagulants: The patient has taken no anticoagulant or antiplatelet agents. After reviewing the risks and benefits, the patient was deemed in satisfactory condition to undergo the procedure. After obtaining informed consent, the endoscope was passed under direct vision. Throughout the procedure, the patient's blood pressure, pulse, and oxygen saturations were monitored continuously. The Endoscope was introduced through the mouth, and advanced to the fourth part of duodenum. The upper GI endoscopy was accomplished without difficulty. The patient tolerated the procedure well. Scope In: 8:18:49 AM Scope Out: 8:25:15 AM Total Procedure Duration Time 0 hours 6 minutes 26 seconds Findings: One benign-appearing, intrinsic moderate (circumferential scarring or stenosis; an endoscope may pass) stenosis was found at the gastroesophageal junction. This stenosis measured less than one cm (in length). The stenosis was traversed. A TTS dilator was passed through the scope. Dilation with a 15-16.5-18 mm balloon dilator was performed to 18 mm. The dilation site was examined following endoscope reinsertion and showed moderate improvement in luminal narrowing. Estimated blood loss was minimal. The stomach was normal. The examined duodenum was normal. Impression: - Benign-appearing esophageal stenosis. Dilated. - Normal stomach. - Normal examined duodenum. - No specimens collected. Recommendation: - Discharge patient to home. - Mechanical soft diet for 2 days. - Continue present medications. Procedure Code(s): --- Professional --- 58410, Esophagogastroduodenoscopy, flexible, transoral; with transendoscopic balloon dilation of esophagus (less than 30 mm diameter) Diagnosis Code(s): --- Professional --- K22.2, Esophageal obstruction R13.10, Dysphagia, unspecified CPT copyright 2021 [employer]. All rights reserved. The codes documented in this report are preliminary and upon video news editor review may be revised to meet current compliance requirements. Thad Lockwood MD 10/11/2024 8:28:46 AM This report has been signed electronically. Number of Addenda: 0 Note Initiated On: 10/11/2024 8:13 AM
--- NOTE | 2024-10-11 08:33 | PCM.POST.ANE ---
Anesthesia: Postop Eval I Current Vital Signs Temperature: 97.5 F Pulse Rate: 51 Blood Pressure: 83/71 Respiratory Rate: 16 Pulse Ox: 97 Oxygen Delivery Method: Room Air Assessment Airway patent: Yes Spontaneous unlabored respirations: Yes Mental status: Asleep nausea: No Vomiting: No Anesthesia Complication: No Fluid Hydration Crystalloid volume administer (ml): 30 Total IV fluid infused: 30 Progress Note Anesthesia document: Postop Eval 1 completed: Yes
--- NOTE | 2024-10-11 09:13 | PCM.POSTANE2 ---
Anesthesia Postop Eval I Sum Postop Eval Completion status Anesthesia document: Postop Eval 1 completed: Yes Anesthesia Postop Eval I Summary Anesthesia Postop Eval I Summary: Anesthesia Postop Eval I: Assessment Summary Airway patent Yes 10/11/24 08:33 [email or web address] Spontaneous unlabored Yes 10/11/24 08:33 [email or web address] respirations Mental status Asleep 10/11/24 08:33 [email or web address] nausea No 10/11/24 08:33 [email or web address] Vomiting No 10/11/24 08:33 [email or web address] Anesthesia Postop Eval I: Fluid Summary Crystalloid volume administer 30 10/11/24 08:33 [email or web address] (ml) Colloids volume administered ( ml) Blood Product volume administered (ml) Total IV fluid infused 30 10/11/24 08:33 [email or web address] Anesthesia Postop Eval I: Summary Notes Anesthesia Complication No 10/11/24 08:33 [email or web address] Anesthesia Complication Comment: Post-operative progress note Anesthesia: Postop Eval II Evaluation Mental status: Awake Pain Level: 0 nausea: No Vomiting: No
== END 2024-10-11 09:18 | disposition home or self-care (01) ==
LOC: EN 06:50 → AC 06:52
PROVIDERS: PCP Family Medicine; Referring Provider Family Medicine; Visit Provider Surgery
PROC: 0DJ08ZZ Inspection of Upper Intestinal Tract, Via Natural or Artificial Opening Endoscopic (ICD-10-PCS; CPT 43235; principal; 2024-10-11 07:55)
DX: K22.2 Esophageal obstruction (principal)
CPT/HCPCS: 43249